=== PATIENT | female | born 1985 | race African-American/Black ===

== ENCOUNTER 2017-11-03 11:33 | Emergency (ER) | payer OTHER ==
[2017-11-03] MEDS ORDERED: ACETAMINOPHEN TAB 500 MG TAB PO STA (13:15)
[2017-11-03] MEDS ORDERED: IBUPROFEN 600 MG TAB PO STA (13:15)
--- NOTE | 2017-11-03 13:36 | ED ---
General Adult HPI - General Chief complaint: Upper Respiratory Infection Stated complaint: flu symptoms Time Seen by Provider: 11/03/17 13:05 Source: patient, RN notes reviewed Mode of arrival: ambulatory - History of Present Illness Initial comments: 32-year-old female presents emergency Department with chief complaint of cough cold sore throat. She's been sick for about a week. She states that she's been using Motrin Tylenol without much improvement. She states that her children are sick with similar like symptoms. They were concerned due to her continued symptoms so she thought that she should be evaluated. Patient is otherwise feeling well with no other complaints.Patient denies any recent shortness of breath, chest pain, back pain, abdominal pain, nausea vomiting, numbness or tingling, dysuria or hematuria, constipation or diarrhea, headaches or visual changes, or any other current symptoms. - Related Data Previous Rx's Medication Instructions Recorded Amoxicillin 500 mg PO Q8H #21 capsule 11/03/17 Allergies Allergy/AdvReac Type Severity Reaction Status Date / Time No Known Allergies Allergy Verified 11/03/17 13:02 Review of Systems ROS Statement: Those systems with pertinent positive or pertinent negative responses have been documented in the HPI. ROS Other: All systems not noted in ROS Statement are negative. Past Medical History Past Medical History: No Reported History History of Any Multi-Drug Resistant Organisms: None Reported Past Surgical History: No Surgical Hx Reported Past Psychological History: No Psychological Hx Reported Smoking Status: Never smoker Past Alcohol Use History: None Reported Past Drug Use History: None Reported General Exam - General Exam Comments Initial Comments: General exam: Alert, active, comfortable in no apparent distress Head: Normocephalic Eyes: Normal reaction of pupils, equal size, normal range of extraocular motion Ears: normal external ear canals, pink tympanic membranes with normal cone of light Nose: clear with pink turbinates Throat: Erythema with exudates noted. Normal sized tonsils. Neck: no masses, no nuchal rigidity Chest: no chest wall deformity Lungs: equal air entry with no crackles or wheeze CVS: S1 and S2 normal with no audible mumurs, regular rhythm Abdomen: no hepatosplenomegaly, normal bowel sounds, no guarding or rigidity Spine: no scoliosis or deformity Skin: no rashes Neurological: No focal deficits, tone is normal in all 4 extremities Course Vital Signs 11/03/17 12:22 Temperature 100.1 F H Pulse Rate 78 Respiratory 20 Rate Blood Pressure 101/58 O2 Sat by Pulse 100 Oximetry Medical Decision Making - Medical Decision Making 32-year-old female presents for cough cold fever and sore throat symptoms. This time imaging and x-rays reviewed as well as laboratory. At this time we discussed we will start antibiotics to the daughter having pneumonia. Discussed return parameters and follow-up and all questions. Patient states she understood and she is given plan. She'll discharged. - Lab Data Lab Results 11/03/17 11/03/17 Range/Units 12:28 13:43 Influenza Type A RNA Not Detected (Not Detectd) Influenza Type B (PCR) Not Detected (Not Detectd) Group A Strep Rapid Negative (Negative) - Radiology Data Radiology results: report reviewed, image reviewed Disposition Clinical Impression: Upper respiratory infection Disposition: HOME SELF-CARE Condition: Stable Instructions: Upper Respiratory Infection (ED) Additional Instructions: Please use medication as discussed. Please follow up with family doctor if symptoms have not improved over the next two days. Please return to the emergency room if your symptoms increase or worsen or for any other concerns. Prescriptions: Amoxicillin 500 mg PO Q8H #21 capsule Referrals: Iram Sandoval MD [STAFF PHYSICIAN] - 1-2 days Time of Disposition: 14:43
--- NOTE | 2017-11-03 14:41 | XR ---
EXAMINATION TYPE: XR chest 2V DATE OF EXAM: 11/03/2017 COMPARISON: NONE INDICATION: Cough persistent TECHNIQUE: Frontal and lateral views of the chest are obtained. FINDINGS: The heart size is normal. The pulmonary vasculature is normal. The lungs are clear. There is no pleural effusion or pneumothorax. IMPRESSION: 1. No acute pulmonary process.
[2017-11-03 14:57] VITALS: BP 112/82; PULSE 88; RESP 18; TEMP 98.7
== END 2017-11-03 14:56 | disposition home or self-care (01) ==
LOC: EC 11:33
DX: J06.9 Acute upper respiratory infection, unspecified (principal)
CPT/HCPCS: 71046; 87081; 87430; 87502; 99283